=== PATIENT | female | born 1995 | race Caucasian/White ===

== ENCOUNTER 2016-12-07 15:34 | Emergency (ER) | payer MEDICAID ==
[~2016-12-07] VITALS: Ht 154.9 cm; Wt 49.9 kg
[2016-12-07 15:35] VITALS: BP 112/53; PULSE 78; RESP 19; TEMP 97.6; O2SAT 100
--- NOTE | 2016-12-07 15:35 | NUR ---
Patient triaged and placed in waiting room. VSS and patient appears in no acute distress at this time. Accompanied by MOTHER, awaiting available bed, and MD notified of need for MSE.
--- NOTE | 2016-12-07 15:56 | NUR ---
Patient to ER bed H to gown for evaluation. Side rails up. Report given to Kamilah SY.
--- NOTE | 2016-12-07 15:57 | NUR ---
Patient to ER C/O anxiety and emotional distress. Patient states that her father 1 year ago and she has multiple family stressors related to the mother, job, school, friends and housing. Patient denies throughts of self/others injury. States that she sees a therapist biweekly but today the mother insisted of her to come to ER because she has lost weight, decrease appetite, constant crying. AAOx4, unlabored breathing, no signs of acute distress.
--- NOTE | 2016-12-07 16:22 | NUR ---
ER MARILYNN Parks at bedside for evaluation
[2016-12-07] MEDS ORDERED: LORazepam 1 MG TABLET PO ONE (17:30)
[2016-12-07 17:43] VITALS: BP 116/71; PULSE 84; RESP 16; TEMP 98; O2SAT 100
--- NOTE | 2016-12-07 17:43 | NUR ---
Patient given written and verbal discharge instructions and verbalizes understanding. ER [employer]ARIAN Kasey discussed with patient the results and treatment provided. Patient in stable condition. ID arm band removed. Rx of ativan given. Patient educated on pain management and to follow up with PMD. Pain Scale 0/10. Opportunity for questions provided and answered.
== END 2016-12-07 17:43 | disposition home or self-care (01) ==
LOC: SED 15:34
DX: F41.9 Anxiety disorder, unspecified (principal); R07.89 Other chest pain
CPT/HCPCS: 93005; 99283

== ENCOUNTER 2020-10-04 14:51 | Emergency (ER) | payer MEDICAID, OTHER ==
[~2020-10-04] VITALS: Ht 154.9 cm; Wt 56.7 kg
[2020-10-04 14:57] VITALS: BP_SYST 98
--- NOTE | 2020-10-04 15:01 | NUR ---
TRINY AND PLACED IN THE WAITING ROOM
--- NOTE | 2020-10-04 15:10 | NUR ---
PT ARRIVES FROM HOME W/ A ROAD BURN TO RIGHT UPPER THIGHT. PT WAS SEEN AT URGENT [facility]ARE. PT IS CONCERNED AND WANTS TO MAKE SURE THAT HER THIGH IS HEALING WELL
[2020-10-04 15:37] VITALS: BP_SYST 98
--- NOTE | 2020-10-04 15:38 | NUR ---
PT LEFT WITHOUT BEING SEEN
== END 2020-10-04 15:38 | disposition left against medical advice (07) ==
LOC: SED 14:51
DX: M79.604 Pain in right leg (principal); Z53.21 Procedure and treatment not carried out due to patient leaving prior to being seen by health care provider